=== PATIENT | female | born 1980 | race Caucasian/White ===

== ENCOUNTER 2019-01-03 11:02 | Day surgery (SDC) | payer BC ==
[~2019-01-03] VITALS: Ht 170.2 cm; Wt 57.7 kg
[2019-01-03 11:34] VITALS: BP 135/80
[2019-01-03] MEDS ORDERED: MYCO500T PO (11:47)
[2019-01-03] MEDS ORDERED: NORE-86 PO (11:47)
[2019-01-03] MEDS ORDERED: ELET40TA PO (11:47)
[2019-01-03] MEDS ORDERED: CYCL100C PO ×2 (11:47)
[2019-01-03] MEDS ORDERED: PRED2.5T PO (11:47)
[2019-01-03] MEDS ORDERED: RAMI2.5C2 PO (11:47)
[2019-01-03 12:18] LABS: BASOPHILS # (AUTO) 0.03 x10^3/uL (0-0.1); BASOPHILS % (AUTO) 0 % (0-1); EOSINOPHILS # (AUTO) 0.09 x10^3/uL (0-0.4); EOSINOPHILS % (AUTO) 1 % (1-7); LYMPHOCYTES # (AUTO) 2.32 x10^3/uL (1-3.4); LYMPHOCYTES % (AUTO) 26 % (22-44); MD NO; MEAN CORPUSCULAR HEMOGLOBIN 30.2 pg (27.0-34.8); MEAN CORPUSCULAR HGB CONC 33.2 g/dL (32.4-35.8); MEAN CORPUSCULAR VOLUME 91.2 fL (80-100); MEAN PLATELET VOLUME 8.4 fL (7.4-10.4); MONOCYTES # (AUTO) 0.49 x10^3/uL (0.2-0.8); MONOCYTES % (AUTO) 6 % (2-9); NEUTROPHILS # (AUTO) 5.93 x10^3/uL (1.8-6.8); NEUTROPHILS % (AUTO) 67 % (42-75); PLATELET COUNT 271 x10^3/uL (130-400); RED BLOOD COUNT 3.58 x10^6/uL (3.82-5.3); RED CELL DISTRIBUTION WIDTH 13.4 % (9.6-15.2)
[2019-01-03 12:28] LABS: ANION GAP 7 mmol/L (5-15); CALCIUM 8.2 mg/dL (8.5-10.1); CHLORIDE 108 mmol/L (98-107); CREATININE 1.77 mg/dL (0.55-1.02)
[2019-01-03] MEDS ORDERED: FENTANYL PF 100 MCG/2ML ONE ×3 (14:00→14:39)
[2019-01-03] MEDS ORDERED: MIDAZOLAM 1 MG/ML, 5ML ONE ×3 (14:00→14:39)
[2019-01-03] MEDS ORDERED: NITROGLYCERIN 5 MG/ML, 10ML ONE (14:04)
[2019-01-03] MEDS ORDERED: DIPHENHYDRAMINE 50 MG/ML, 1ML ONE (14:17)
[2019-01-03] MEDS ORDERED: SODIUM CHLORIDE 0.9% 1,000 ML IV SCH (14:59)
== END 2019-01-03 17:20 | disposition home or self-care (01) ==
LOC: CACL 11:02
PROVIDERS: ATTEND Internal Medicine Cardiovascular Disease
DX: I42.8 Other cardiomyopathies (principal); I12.9 Hypertensive chronic kidney disease with stage 1 through stage 4 chronic kidney disease, or unspecified chronic kidney disease; N18.2 Chronic kidney disease, stage 2 (mild); G43.909 Migraine, unspecified, not intractable, without status migrainosus; Z79.899 Other long term (current) drug therapy; Z88.2 Allergy status to sulfonamides; Z94.1 Heart transplant status
CPT/HCPCS: 36415; 80048; 85025; 93460; 99156; 99157; C1769; C1894; J1200; J2250; J3010; Q9967

== ENCOUNTER 2020-05-18 19:39 | Emergency (ER) | payer BC ==
[~2020-05-18] VITALS: Ht 170.2 cm; Wt 61.2 kg
[~2020-05-18 19:39] MED LIST: CYCL100C PO; ELET40TA PO; MYCO500T PO; NORE-86 PO; PRED2.5T PO; RAMI2.5C2 PO; RAMI2.5C28 PO; SIMV40TA PO
[2020-05-18 19:45] VITALS: BP 140/98
[2020-05-18] MEDS ORDERED: LIDOCAINE-MPF 1%, 5ML INFIL ONE (20:00)
[2020-05-18] MEDS ORDERED: DIPH,PERTUSS(ACELL),TET VAC/PF 0.5 ML IM-VACC ONE ×2 (20:00→20:53)
[2020-05-18] MEDS ORDERED: LIDOCAINE-MPF 1%, 5ML ONE (20:16)
[2020-05-18] MEDS ORDERED: DOXYCYCLINE 100MG TABLET ONE (20:53)
[2020-05-18] MEDS ORDERED: DOXYCYCLINE 100MG TABLET PO ONE (21:00)
== END 2020-05-18 21:04 | disposition home or self-care (01) ==
LOC: ED 21:00
DX: S60.571A Other superficial bite of hand of right hand, initial encounter (principal); S61.431A Puncture wound without foreign body of right hand, initial encounter; W54.0XXA Bitten by dog, initial encounter; Y93.89 Activity, other specified; Y92.89 Other specified places as the place of occurrence of the external cause; Y99.8 Other external cause status
CPT/HCPCS: 90471; 90715; 99283

== ENCOUNTER 2021-01-28 11:35 | Day surgery (SDC) | payer BC ==
[~2021-01-28] VITALS: Ht 170.2 cm; Wt 59.1 kg
[~2021-01-28 11:35] MED LIST changes: -RAMI2.5C2 PO; +RAMI2.5C49 PO
[2021-01-28 12:15] VITALS: BP 142/99
[2021-01-28] MEDS ORDERED: PROPOFOL 50 ML ONE ×2 (12:20→13:22)
[2021-01-28] MEDS ORDERED: LIDOCAINE 1%, 20ML ONE (12:23)
[2021-01-28 12:45] LABS: BASOPHILS % (AUTO) 1 % (0-1); EOSINOPHILS % (AUTO) 3 % (1-7); LYMPHOCYTES % (AUTO) 28 % (22-44); MEAN CORPUSCULAR HEMOGLOBIN 29.7 pg (27.0-34.8); MEAN CORPUSCULAR HGB CONC 33.5 g/dL (32.4-35.8); MEAN PLATELET VOLUME 7.8 fL (7.4-10.4); MONOCYTES % (AUTO) 8 % (2-9); NEUTROPHILS % (AUTO) 61 % (42-75); PLATELET COUNT 283 x10^3/uL (130-400); RED BLOOD COUNT 4.21 x10^6/uL (3.82-5.3); RED CELL DISTRIBUTION WIDTH 12.9 % (9.6-15.2)
[2021-01-28 12:50] LABS: ANION GAP 6 mmol/L (5-15); CALCIUM 9.2 mg/dL (8.5-10.1); CHLORIDE 108 mmol/L (98-107); CREATININE 1.55 mg/dL (0.55-1.02)
[2021-01-28] MEDS ORDERED: PROPOFOL 10 MG/ML, 20ML ONE (13:01)
== END 2021-01-28 16:56 | disposition home or self-care (01) ==
LOC: CACL 11:35
PROVIDERS: ATTEND Internal Medicine Cardiovascular Disease
DX: Z01.810 Encounter for preprocedural cardiovascular examination (principal); I13.0 Hypertensive heart and chronic kidney disease with heart failure and stage 1 through stage 4 chronic kidney disease, or unspecified chronic kidney disease; N18.2 Chronic kidney disease, stage 2 (mild); I50.30 Unspecified diastolic (congestive) heart failure; I42.8 Other cardiomyopathies; Z79.899 Other long term (current) drug therapy; Z88.2 Allergy status to sulfonamides; Z88.8 Allergy status to other drugs, medicaments and biological substances
CPT/HCPCS: 36415; 80048; 85025; 93460; C1769; C1894; J2704; Q9967